=== PATIENT | female | born 1980 | race Caucasian/White ===

== ENCOUNTER 2017-07-11 13:59 | Emergency (ER) | payer OTHER ==
[~2017-07-11] VITALS: Ht 162.6 cm; Wt 87.1 kg
[~2017-07-11 13:59] MED LIST: LAMO200T2 PO; LITH300T3 PO; ZIPR20CA2 PO
[2017-07-11] MEDS ORDERED: TRAZ-147 PO (14:16)
[2017-07-11] MEDS ORDERED: LURA80TA PO (14:16)
[2017-07-11] MEDS ORDERED: METO-302 PO (14:16)
[2017-07-11] MEDS ORDERED: IBUPROFEN 800 MG TABLET PO ONE (14:45)
[2017-07-11] MEDS ORDERED: IBUPROFEN 800 MG TABLET ONE (15:01)
--- NOTE | 2017-07-11 15:43 | NUR ---
Patient discharged to home in stable conditon. Written and verbal after care instructions given. Patient verbalizes understanding of instructions.pt walks in steady gait, says fesl better.
== END 2017-07-11 15:47 | disposition home or self-care (01) ==
LOC: ER 13:59
DX: S16.1XXA Strain of muscle, fascia and tendon at neck level, initial encounter (principal); I10 Essential (primary) hypertension; X58.XXXA Exposure to other specified factors, initial encounter; Y93.89 Activity, other specified; Y92.9 Unspecified place or not applicable; Y99.9 Unspecified external cause status
CPT/HCPCS: 72125; 73030; A4663

== ENCOUNTER 2017-11-22 13:08 | Emergency (ER) | payer OTHER ==
[~2017-11-22] VITALS: Ht 160 cm; Wt 92.1 kg
[~2017-11-22 13:08] MED LIST changes: -LITH300T3 PO; +LURA80TA PO; +METO-356 PO; +TRAZ-147 PO; -ZIPR20CA2 PO
[2017-11-22] MEDS ORDERED: VENL75TA4 PO (13:22)
[2017-11-22] MEDS ORDERED: predniSONE 50 MG TABLET ONE (13:47)
[2017-11-22] MEDS ORDERED: CEPHALEXIN MONOHYDRATE 500 MG CAPSULE ONE (13:47)
[2017-11-22] MEDS: predniSONE 50 MG TABLET PO ONE (13:50)
[2017-11-22] MEDS: CEPHALEXIN MONOHYDRATE 500 MG CAPSULE PO ONE (13:50)
--- NOTE | 2017-11-22 14:05 | NUR ---
Patient discharged to home in stable conditon. Written and verbal after care instructions given. Patient verbalizes understanding of instructions.PT WITH FAMILY MEMBER. PT SWALLOWING WITH NO DIFFICULTY, BREATHING NORMALLY.
== END 2017-11-22 14:06 | disposition home or self-care (01) ==
LOC: ER 13:08
DX: I88.9 Nonspecific lymphadenitis, unspecified (principal); I10 Essential (primary) hypertension; Z79.891 Long term (current) use of opiate analgesic; Z79.899 Other long term (current) drug therapy
CPT/HCPCS: 70360; 99284; A4663; J7512

== ENCOUNTER 2020-12-05 13:58 | Emergency (ER) | payer OTHER ==
[~2020-12-05] VITALS: Ht 160 cm; Wt 90.7 kg
[~2020-12-05 13:58] MED LIST changes: -TRAZ-147 PO; +TRAZ-257 PO; +VENL75TA4 PO
[2020-12-05] MEDS ORDERED: PROG100C15 PO (14:10)
--- NOTE | 2020-12-05 14:11 | NUR ---
at bedside for assessment
[2020-12-05 14:44] LABS: BASOPHILS % (AUTO) 0.6 % (0.0-2.0); EOSINOPHILS # (AUTO) 0.1 K/uL (0.0-0.7); LYMPHOCYTES # (AUTO) 1.8 K/uL (20.0-40.0); LYMPHOCYTES % (AUTO) 20.5 % (20.5-51.5); MEAN CORPUSCULAR HEMOGLOBIN 29.2 uug (24.7-32.8); MEAN CORPUSCULAR HGB CONC 33 g/dL (32.3-35.6); MEAN CORPUSCULAR VOLUME 87.5 fL (75.5-95.3); MONOCYTES # (AUTO) 0.6 K/uL (2.0-10.0); MONOCYTES % (AUTO) 6.3 % (0.0-11.0); NEUTROPHILS # (AUTO) 6.3 K/uL (1.8-8.9); NEUTROPHILS % (AUTO) 71.6 % (38.5-71.5); PLATELET COUNT (AUTO) 192 K/uL (179-408); RED BLOOD CELL COUNT(AUTO) 3.08 MIL/uL (3.63-4.92); WHITE BLOOD COUNT (AUTO) 8.8 K/uL (3.8-11.8)
[2020-12-05 14:48] LABS: CREATININE 0.9 mg/dL (0.6-1.3); POTASSIUM 4.3 mmol/L (3.5-5.1)
[2020-12-05 14:50] LABS: *URINE HCG, QUAL NEGATIVE (NEGATIVE)
--- NOTE | 2020-12-05 15:10 | NUR ---
Assisted MD with vaginal examine at this time
[2020-12-05] MEDS ORDERED: FERR325T28 PO (15:29)
[2020-12-05 15:38] VITALS: BP 115/73
--- NOTE | 2020-12-05 15:40 | NUR ---
Patient discharged to home in stable condition. No signs of acute distress noted, took all belongings, Written and verbal after care instructions given. Patient verbalizes understanding of instructions. Stressed follow up or return to ER for worsening s/s.
== END 2020-12-05 15:40 | disposition home or self-care (01) ==
LOC: ER 14:01
DX: N92.0 Excessive and frequent menstruation with regular cycle (principal); D64.9 Anemia, unspecified; I10 Essential (primary) hypertension; F31.9 Bipolar disorder, unspecified; Z79.899 Other long term (current) drug therapy
CPT/HCPCS: 36415; 84703; 85025; 86850; 86900; 86901; 93005; A4663